=== PATIENT | female | born 1940 | race Caucasian/White ===

== ENCOUNTER 2023-10-07 15:18 | Outpatient (CLI) | payer MEDICARE, OTHER, SELFPAY | END 2023-10-07 15:19 | disposition home or self-care (01) | LOC: AMB 10-09 20:20 | PROVIDERS: Visit Provider Emergency Medicine | DX: R55 Syncope and collapse (principal); I95.9 Hypotension, unspecified; R53.1 Weakness | CPT/HCPCS: A0998 ==